=== PATIENT | male | born 1960 | race Caucasian/White ===

== ENCOUNTER 2020-08-15 06:33 | Emergency (ER) | payer OTHER ==
--- NOTE | 2020-08-15 06:40 | ER Document Report ---
ED General <JENNIFER PATINO - Last Filed: 08/15/20 08:05> <ELISEDANIEL M - Last Filed: 08/15/20 10:56> <FLACORIVER Za - Last Filed: 08/15/20 12:45> - General Chief Complaint: Sore Throat Stated Complaint: THROAT Time Seen by Provider: 08/15/20 06:39 Primary Care Provider: GURWINDER RODRIGUEZ [NO LOCAL MD] - Follow up as needed - HPI Notes: 59-year-old male to the emergency department with complaints of progressively worsening left-sided throat swelling and pain and left-sided neck swelling for the past 3 weeks. He states his been going to the [facility] for this. He states he has been on antibiotics. He states he cannot remember the name of the last antibiotic. Denies any fevers or chills. He states that is been getting worse in the past couple of days. States when he lays flat he feels like he cannot really breathe. He denies any chest pain or shortness of breath. (JENNIFER PATINO) Past Medical History - General Information source: Patient - Social History Smoking Status: Current Every Day Smoker Frequency of alcohol use: None Drug Abuse: None Family History: Reviewed & Not Pertinent <JENNIFER PATINO - Last Filed: 08/15/20 08:05> Review of Systems - Review of Systems Constitutional: denies: Chills, Fever EENT: Throat pain, Difficulty swallowing, Throat swelling - See HPI Cardiovascular: denies: Chest pain, Palpitations, Heart racing, Orthopnea, Dyspnea, Syncope, Dizziness, Lightheaded Respiratory: denies: Cough, Short of breath Gastrointestinal: denies: Abdominal pain, Diarrhea, Nausea, Vomiting Musculoskeletal: No symptoms reported Skin: No symptoms reported Hematologic/Lymphatic: No symptoms reported Neurological/Psychological: No symptoms reported -: Yes All other systems reviewed and negative <JENNIFER PATINO - Last Filed: 08/15/20 08:05> Physical Exam - Vital signs Interpretation: Normal - General General appearance: Appears well, Alert - HEENT Head: Normocephalic, Atraumatic Ears: Normal External canal: Normal. No: Blood in canal, Cerumen impaction Tympanic membrane: Normal. No: Bulging Sinus: Normal Nasal: Normal. No: Purulent discharge Pharynx: Other - There is significant edema to the left tonsillar pillar. There is shifting of the uvula because of this and crowding in the posterior oropharynx. Patient does not have a muffled voice and he is not actively drooling. He has no Trismus. There is no Alejandro's angina. There is unilateral neck swelling. Likely most consistent with a lymph node; however the area is very hard and not mobile. Neck: Supple - Respiratory Respiratory status: No respiratory distress Chest status: Nontender. No: Accessory muscle use Breath sounds: Normal. No: Rales, Rhonchi, Wheezing Chest palpation: Normal - Cardiovascular Rhythm: Regular Heart sounds: Normal auscultation Murmur: No - Abdominal Inspection: Normal Distension: No distension Bowel sounds: Normal Tenderness: Nontender. No: Tender, McBurney's point, Jacome's sign, Guarding, Rebound Organomegaly: No organomegaly - Back Back: Normal, Nontender - Neurological Neuro grossly intact: Yes Cognition: Normal Orientation: AAOx4 Paras Coma Scale Eye Opening: Spontaneous Paras Coma Scale Verbal: Oriented Revere Coma Scale Motor: Obeys Commands Revere Coma Scale Total: 15 Speech: Normal Cranial nerves: Normal Cerebellar coordination: Normal Motor strength normal: LUE, RUE, LLE, RLE Additional motor exam normals: Equal product evangelist Sensory: Normal - Psychological Associated symptoms: Normal affect, Normal mood - Skin Skin Temperature: Warm Skin Moisture: Dry Skin Color: Normal <JENNIFER PATINO M - Last Filed: 08/15/20 08:05> - Vital signs Vitals: Temp Pulse Resp BP Pulse Ox 97.8 F 72 17 140/90 H 97 08/15/20 06:38 08/15/20 06:38 08/15/20 06:38 08/15/20 06:38 08/15/20 06:38 Course - Laboratory Result Diagrams: 08/15/20 07:03 08/15/20 07:03 <JENNIFER PATINO M - Last Filed: 08/15/20 08:05> - Laboratory Result Diagrams: 08/15/20 07:03 08/15/20 07:03 <DANIEL OLIVARES M - Last Filed: 08/15/20 10:56> - Laboratory Result Diagrams: 08/15/20 07:03 08/15/20 07:03 <RIVER SAM J - Last Filed: 08/15/20 12:45> - Re-evaluation Re-evalutation: 08/15/20 06:[address] Sam, my ER attending. He is aware that I have ordered a CT of the neck as well as gotten labs, Decadron and clindamycin ordered. Dr. Sma will go and examined the patient's throat. 08/15/20 07:15 Dr. Sam went and saw the patient. We will call ENT to discuss the patient. He agrees with Decadron and Clinda. Spoke with Dr. Tobar, ENT. He is aware of the encouragement of the airway on the patient; however, patient is stable. He does not have trismus, drooling, tripoding. Dr. Tobar agrees with the current plan for Decadron, Clinda. He wi ll await return phone call after CT. have placed airway cart by patient to room. Advised Dr. Tobar, I would call him should the patient's status change further. 08/15/20 08:05 Turned patient over to PROFESSOR OF POULTRY SCIENCE Daniel Olivares. She will await Ct and called Dr. Tobar. We did bedside rounding on the patient. She will dispo the patient accordingly. (JENNIFER PATINO) 08/15/20 08:[address] Tobar, the ENT administration specialist he said that due to the patient having airway compromise and this most likely being cancer, he is recommending patient be transferred to another facility. 08/15/20 08:55 I called [facility]. Will await callback from ENT. 08/15/20 09:[address] Mccall, ENT at [facility]. Patient will be a ED to ED transfer. 08/15/20 09:38 Dr. Mccall called back. He would like me to have Dr. Tobar. I spoke with Dr. Tobar and he would like the patient transferred to [facility] 08/15/20 09:45 I spoke with the transfer center at [facility]. Will await callback from ENT. 08/15/20 10:26 Dr. Sam and I spoke with Dr. Isidro from [facility]. She states that with these types of tumors, the patients follow-up on an outpatient basis. She would like patient to follow-up in the clinic on Sunday. [place] will give him a call with follow-up. Discussed this with the patient. He is in agreement with this plan. Follow-up precautions were given. Verbal discharge instructions were given to the patient. They verbalized understanding. They are stable for discharge. (DANIEL OLIVARES) 08/15/20 12:[address] Sam. On patient's arrival patient was evaluated by midlevel provider and myself. It was noted that patient had a large mass in the left retropharyngeal area pushing deviating tissue to the right past midline uvula. Patient's airway was patent beyond that point. Patient had no stridor no tachypnea no respiratory distress speech was clear and patient was not having any drooling was able to swallow without difficulty. Patient also had was able to speak without unintelligible speech. 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 Patient was deemed not an emergency necessary transfer to another facility when we discussed this case with the ENT at [facility]. The plan at that time became 1 treat patient with continued steroids and Ector Magic mouthwash and Tylenol ibuprofen. Patient also is to be followed up by the ENT clinic. [facility] ENT clinic will be in touch with subject patient to alert him to know details of date and time of his clinic visit. Patient understood this and patient is discharged home in good health at this time. No airway compromise of any significance. There is no worsening of airway while in the department and if anything the mass size did decrease as patient thought "" that it loosened up". (RIVER SAM) - Vital Signs Vital signs: Temp Pulse Resp BP Pulse Ox 97.8 F 72 15 111/81 96 08/15/20 06:38 08/15/20 11:15 08/15/20 11:15 08/15/20 11:15 08/15/20 11:15 Discharge <JENNIFER PATINO - Last Filed: 08/15/20 08:05> <ELISEDANIEL M - Last Filed: 08/15/20 10:56> <RIVER SAM - Last Filed: 08/15/20 12:45> - Discharge Clinical Impression: Throat mass Condition: Stable Disposition: HOME, SELF-CARE Additional Instructions: You are seen today in the emergency department for sore throat. You have a mass in your throat. Please follow-up with [facility] with Dr. Isidro. They will call you with an appointment on Sunday. Please take the steroids as prescribed. If you develop shortness of breath or difficulty breathing, call 911 or return to the emergency department immediately. Prescriptions: Ibuprofen [Ibu] 600 mg PO Q6HP PRN #30 tablet PRN Reason: Nystatin/Dexameth/Diphen [Magic Mouthwash ([facility] Formula) Susp] 5 ml PO QID #120 ml Methylprednisolone [Medrol Dosepack (4 mg/Tab) 21 Tab/Dosepak] 4 mg PO ASDIR PRN #21 tab.ds.pk PRN Reason: Forms: Return to Work Referrals: LOCALMD,NO [NO LOCAL MD] - Follow up as needed
[2020-08-15] MEDS ORDERED: CLINDAMYCIN 900 MG/D5W RTU 900 MG/50 ML RTUPB IV ONE (06:51)
[2020-08-15] MEDS ORDERED: DEXAMETHASONE SOD PHOS INJ 10 MG/1 ML VIAL IV ONE (06:51)
[2020-08-15] MEDS ORDERED: NORMAL SALINE 1000 ML 1,000 ML IV ONE (06:52)
[2020-08-15] MEDS ORDERED: DEXAMETHASONE SOD PHOSPHATE INJ 4 MG/1 ML VIAL ONE (06:57)
[2020-08-15 07:14] LABS: ABSOLUTE EOSINOPHILS # (AUTO) 0.1 10^3/uL (0.0-0.6); ABSOLUTE LYMPHOCYTES (AUTO) 1.2 10^3/uL (0.5-4.7); ABSOLUTE MONOCYTES (AUTO) 0.7 10^3/uL (0.1-1.4); ABSOLUTE NEUT (AUTO) 5.9 10^3/uL (1.7-8.2); BASOPHILS % (AUTO) 0.4 % (0-2); EOSINOPHILS % (AUTO) 1.6 % (0-6); HEMATOCRIT 45.1 % (37.9-51.0); HEMOGLOBIN 15.9 g/dL (13.5-17.0); LYMPHOCYTES % (AUTO) 14.8 % (13-45); MEAN CORPUSCULAR HEMOGLOBIN 33.1 pg (27.0-33.4); MEAN CORPUSCULAR HGB CONC 35.3 g/dL (32.0-36.0); MEAN CORPUSCULAR VOLUME 94 fl (80-97); MONOCYTES % (AUTO) 8.8 % (3-13); PLATELET COUNT 260 10^3/uL (150-450); RED CELL DISTRIBUTION WIDTH 12.8 % (11.5-14.0); SEGMENTED NEUTROPHILS % (AUTO) 74.4 % (42-78); TOTAL CELLS COUNTED % (AUTO) 100 %; WHITE BLOOD COUNT 7.9 10^3/uL (4.0-10.5)
[2020-08-15 07:35] LABS: ALBUMIN 4.5 g/dL (3.5-5.0); ALKALINE PHOSPHATASE 84 U/L (38-126); ANION GAP 10 (5-19); ASPARTATE AMINO TRANSFERASE 29 U/L (17-59); BLOOD UREA NITROGEN 12 mg/dL (7-20); CALCIUM 9.4 mg/dL (8.4-10.2); CARBON DIOXIDE 29 mmol/L (22-30); CHLORIDE 102 mmol/L (98-107); GLUCOSE 108 mg/dL (75-110); POTASSIUM 4.2 mmol/L (3.6-5.0); TOTAL PROTEIN 7.3 g/dL (6.3-8.2)
--- NOTE | 2020-08-15 08:36 | RADIOLOGY REPORT (SQ) ---
EXAM DESCRIPTION: CT SOFT TISSUE NECK WITH IMAGES COMPLETED DATE/TIME: 08/15/2020 8:05 am REASON FOR STUDY: unilateral throat swelling, eval CASINO GAMING INSPECTOR vs RPA COMPARISON: None. TECHNIQUE: Post IV contrasted scanning from skull base through lung apices with review of bone, soft tissue and lung windows. Reconstructed coronal and sagittal MPR images reviewed. All images stored on PACS. All CT scanners at this facility use dose modulation, iterative reconstruction, and/or weight based d osing when appropriate to reduce radiation dose to as low as reasonably achievable (ALARA). [facility]: Dose Right [facility]: CareDose [facility]: Dose Right [facility]: Teradose 4D [facility]: Pressflip CONTRAST TYPE AND DOSE: contrast/concentration: Isovue 350.00 mmol/ml; Total Contrast Delivered: 75. 0 ml; Total Saline Delivered: 55.0 ml RENAL FUNCTION: GFR > 60. RADIATION DOSE: CT Rad equipment meets quality standard of care and radiation dose reduction techniq ues were employed. CTDIvol: 15.2 mGy. DLP: 487 mGy-cm. . LIMITATIONS: None. FINDINGS: SKULL BASE: Intact. MAJOR SALIVARY GLANDS: No solid or cystic masses. No inflammatory changes. LYMPHADENOPATHY: Extensive adenopathy along the left cervical chain. MUCOSAL MASSES OR ASYMMETRY: There is extremely large mass at the center in the pharyngeal mucosal sp jae. This mass extends through the carotid space with compression of the tubular vein. Extension al so into the prevertebral space and parapharyngeal space. There does appear to be potential airway co mpromise. Largest diameter 7 cm. LARYNX/CORDS: No abnormal findings. VASCULAR STRUCTURES: Compression of the IJ on the left. Carotid space is generally deviated posterio rly. LUNG APICES: Clear. BONES: Intact. THYROID: Normal size. No masses. PARANASAL SINUSES: Clear. OTHER: No other significant finding. IMPRESSION: Extremely large mass in the parapharyngeal mucosal space on the left with encasement of the IJ and posterior deviation of the carotid. Highly suspicious for tumor. Possible airway compromise. COMMENT: Pertinent findings on the imaging study reported as a CRITICAL RESULT to JENNIFER PATINO PA-C at08:29 on 08/15/2020. Category of Critical Result: Possible airway compromise TECHNICAL DOCUMENTATION: JOB ID: [id number] Quality ID # [id number]: Final reports with documentation of one or more dose reduction techniques (e.g., Au tomated exposure control, adjustment of the mA and/or kV according to patient size, use of iterative reconstruction technique) 2010 [employer]- All Rights Reserved Reading location - IP/workstation name: [email or web address]
[2020-08-15 11:17] VITALS: BP 111/81
== END 2020-08-15 11:15 | disposition home or self-care (01) ==
LOC: ER 06:33
DX: J39.2 Other diseases of pharynx (principal); R07.0 Pain in throat; R13.10 Dysphagia, unspecified; F17.200 Nicotine dependence, unspecified, uncomplicated
CPT/HCPCS: 99285; 96361; 96365; 96368; 36415; 87040; 87070; 87880; 85025; 86308; 80053; 70491; J3490; J7030; J1100

== ENCOUNTER 2020-08-17 15:53 | Emergency (ER) | payer OTHER ==
--- NOTE | 2020-08-17 16:12 | ER Document Report ---
ED Medical Screen (RME) - General Stated Complaint: NECK PAIN Time Seen by Provider: 08/17/20 16:11 Mode of Arrival: Ambulatory Information source: Patient Notes: 5-year-old male patient presenting to the emergency department with concern for mass to the right side of his neck. Patient reports he was seen here several days ago, diagnosed with a large neck mass with compressive symptoms. Patient was placed to be transferred to [facility]. Apparently after much deliberation the patient was then supposed to follow-up outpatient with [facility] ENT clinic. He states due to red tape with the [place] patient was not able to accomplish this. He states he has spoken with a physician at [facility], they want to have him there however they did not want him to drive so he was told to present to our emergency department to be transferred to [facility]. Patient is speaking in full and complete sentences. He does report that he has some feelings of fullness with swallowing. I have greeted and performed a rapid initial assessment of this patient. A comprehensive ED assessment and evaluation of the patient, analysis of test results and completion of the medical decision making process will be conducted by additional ED providers. I have specifically instructed the patient or family members with the patient to immediately return to any nursing staff should anything change in the patient's condition or with their chief complaint. Physical Exam - Vital signs Vitals: Temp Pulse Resp BP Pulse Ox 98.1 F 105 H 16 166/92 H 98 08/17/20 16:08 08/17/20 16:08 08/17/20 16:08 08/17/20 16:08 08/17/20 16:08 Course - Vital Signs Vital signs: Temp Pulse Resp BP Pulse Ox 98.1 F 105 H 16 166/92 H 98 08/17/20 16:08 08/17/20 16:08 08/17/20 16:08 08/17/20 16:08 08/17/20 16:08
[2020-08-17 17:16] LABS: ALBUMIN 4.6 g/dL (3.5-5.0); ALKALINE PHOSPHATASE 83 U/L (38-126); ANION GAP 11 (5-19); ASPARTATE AMINO TRANSFERASE 31 U/L (17-59); BILIRUBIN,DIRECT 0.2 mg/dL (0.0-0.4); BILIRUBIN,TOTAL 0.4 mg/dL (0.2-1.3); BLOOD UREA NITROGEN 15 mg/dL (7-20); CALCIUM 9.7 mg/dL (8.4-10.2); CARBON DIOXIDE 25 mmol/L (22-30); CHLORIDE 105 mmol/L (98-107); GLUCOSE 117 mg/dL (75-110); POTASSIUM 4.8 mmol/L (3.6-5.0); TOTAL PROTEIN 7.5 g/dL (6.3-8.2)
--- OUTSIDE RECORDS SUMMARY | 2020-08-17 18:29 | XMS REPORT ---
:1960 Author Organization [facility] Address [facility] [address] [place] [address] Care Team Providers Name Role Phone Unavailable Unavailable Unavailable Allergies, Adverse Reactions, Alerts This patient has no known allergies or adverse reactions. Medications This patient has no known medications. Problems Condition Condition Condition Status Onset Resolution Last Treatin g Comments Name Details Category Date Date Treatment Clinician Date Not on file Not on file [id number] Procedures This patient has no known procedures. Results This patient has no known results. Encounters Start End Encounter Admission Attending Care Care Encounter ID Date/Time Date/Time Type Type Clinicians Facility Department 2020-08-15 2020-08-15 Outpatient [facility] [id number] 00:00:00 00:00:00 Plan of Treatment Planned Activity Planned Date Details Comments Future Scheduled Test [code = ] Future Scheduled Test [code = ] Future Scheduled Test [code = ] Future Scheduled Test [code = ] Future Scheduled Test [code = ] Social History This patient has no known social history. Vital Signs This patient has no known vital signs.
[2020-08-17 21:31] LABS: ABSOLUTE LYMPHOCYTES (AUTO) 1.2 10^3/uL (0.5-4.7); ABSOLUTE MONOCYTES (AUTO) 0.8 10^3/uL (0.1-1.4); ABSOLUTE NEUT (AUTO) 7.5 10^3/uL (1.7-8.2); BASOPHILS % (AUTO) 0.3 % (0-2); EOSINOPHILS % (AUTO) 0.2 % (0-6); HEMATOCRIT 43.8 % (37.9-51.0); HEMOGLOBIN 15.2 g/dL (13.5-17.0); LYMPHOCYTES % (AUTO) 12.7 % (13-45); MEAN CORPUSCULAR HEMOGLOBIN 32.7 pg (27.0-33.4); MEAN CORPUSCULAR HGB CONC 34.6 g/dL (32.0-36.0); MEAN CORPUSCULAR VOLUME 95 fl (80-97); MONOCYTES % (AUTO) 8.4 % (3-13); PLATELET COUNT 297 10^3/uL (150-450); RED BLOOD COUNT 4.64 10^6/uL (4.35-5.55); RED CELL DISTRIBUTION WIDTH 12.7 % (11.5-14.0); SEGMENTED NEUTROPHILS % (AUTO) 78.4 % (42-78); TOTAL CELLS COUNTED % (AUTO) 100 %; WHITE BLOOD COUNT 9.5 10^3/uL (4.0-10.5)
--- NOTE | 2020-08-17 23:57 | ER Document Report ---
ED General - General Stated Complaint: NECK PAIN Time Seen by Provider: 08/17/20 16:11 Primary Care Provider: NEL,BAILEY [Primary Care Provider] - Follow up as needed Mode of Arrival: Ambulatory Information source: Patient Notes: LAST ED VISIT Emergency Provider: DANIEL OLIVARES Number: [id number] Date: 08/15/20 06:40 - General Chief Complaint: Sore Throat Stated Complaint: THROAT Time Seen by Provider: 08/15/20 06:39 Primary Care Provider: MICHAEL,GURWINDER [NO LOCAL MD] - Follow up as needed - HPI Notes: 59-year-old male to the emergency department with complaints of progressively worsening left-sided throat swelling and pain and left-sided neck swelling for the past 3 weeks. He states his been going to the [place] clinic for this. He states he has been on antibiotics. He states he cannot remember the name of the last antibiotic. Denies any fevers or chills. He states that is been getting worse in the past couple of days. States when he lays flat he feels like he can not really breathe. He denies any chest pain or shortness of breath. (JENNIFER PATINO) CT scan as read by Dr. Valarie Blue on 15 August 2020 reveals an impression of a large mass in the parapharyngeal mucosal space on the left with encasement of the IJ and posterior deviation of the carotid with suspicious for tumor. Also possible air way compromise. ED Medical Screen (Kailash choi) - General Stated Complaint: NECK PAIN Time Seen by Provider: 08/17/20 16:11 Mode of Arrival: Ambulatory Information source: Patient Notes: 59-year-old male patient presenting to the emergency department with concern for mass to the right side of his neck. Patient reports he was seen here several days ago, diagnosed with a large neck mass with compressive symptoms. Patient was placed to be transferred to [facility]. Apparently after much deliberation the patient was then supposed to follow-up outpatient with [facility] ENT clinic. He states due to red tape with the [place] patient was not able to accomplish this. He states he has spoken with a physician at [facility], they want to have him there however they did not want him to drive so he was told to present to our emergency department to be transferred to [facility]. Past Medical History - General Information source: Patient - Social History Family History: Reviewed & Not Pertinent Physical Exam - Vital signs Vitals: Temp Pulse Resp BP Pulse Ox 98.1 F 105 H 16 166/92 H 98 08/17/20 16:08 08/17/20 16:08 08/17/20 16:08 08/17/20 16:08 08/17/20 16:08 Course - Vital Signs Vital signs: Temp Pulse Resp BP Pulse Ox 98.1 F 67 16 183/109 H 98 08/17/20 23:54 08/17/20 23:54 08/17/20 23:54 08/17/20 23:54 08/17/20 23:54 - Laboratory Result Diagrams: 08/17/20 21:08 08/17/20 16:42 Laboratory results interpreted by me: 08/17/20 08/17/20 16:42 21:08 Lymph % (Auto) 12.7 L Seg Neutrophils % 78.4 H Glucose 117 H Discharge - Discharge [facility]errals: [facility] [Primary [facility]] - Follow up as needed
--- NOTE | 2020-08-18 00:05 | ER Document Report ---
ED ENT - General Stated Complaint: NECK PAIN Time Seen by Provider: 08/17/20 16:11 Mode of Arrival: Ambulatory Notes: Patient is a 59-year-old male who comes emergency department for chief complaint of a mass to the left side of the neck and causing discomfort and swallowing difficulty in the back of his throat. Patient was seen on Sunday this department and had imaging, he states that after discussing with ENT here, [place], patient was recommended to be transferred to [facility], reportedly at that point he was recommended to follow-up outpatient. Patient states that he is unable to get to the [facility] because he states first of all it is a difficult trip and second of all he was told the MD would not cover that. [facility] and be transferred to [facility] instead. Patient is requesting for us to do this. Patient states he has a sensation of difficulty swallowing but he is able to do so, he is not drooling, he denies change in his breathing although he states he feels like when he lies down he cannot breathe. He states that he has had worsening symptoms for about 3 weeks and did not really notice it before then. He has been on Augmentin and clindamycin for this. He states the only thing that really seems to help his Magic mouthwash. He currently smokes cigarettes. - Related Data Allergies/Adverse Reactions: No Known Allergies Allergy (Verified 08/18/20 00:31) Past Medical History - General Information source: Patient - Social History Smoking Status: Current Every Day Smoker Frequency of alcohol use: None Drug Abuse: None Lives with: Family Family History: Reviewed & Not Pertinent - Immunizations Hx Diphtheria, Pertussis, Tetanus Vaccination: Yes Review of Systems - Review of Systems Constitutional: No symptoms reported EENT: See HPI Cardiovascular: No symptoms reported Respiratory: No symptoms reported Gastrointestinal: No symptoms reported Genitourinary: No symptoms reported Male Genitourinary: No symptoms reported Musculoskeletal: No symptoms reported Skin: No symptoms reported Hematologic/Lymphatic: No symptoms reported Neurological/Psychological: No symptoms reported Physical Exam - Vital signs Vitals: Temp Pulse Resp BP Pulse Ox 98.1 F 105 H 16 166/92 H 98 08/17/20 16:08 08/17/20 16:08 08/17/20 16:08 08/17/20 16:08 08/17/20 16:08 - Notes Notes: GENERAL: Alert, interacts well. No acute distress. HEAD: Normocephalic, atraumatic. EYES: Pupils equal, round, and reactive to light. Extraocular movements intact. ENT: Oral mucosa moist, tongue midline. There is a firm nontender palpable area over the left upper neck just below the jaw. Pharyngeal evaluation shows large swollen area adjacent and including the left tonsillar area and causing midline shift with displacement of the uvula. There are small patches of whitish appearance over the area as well. No purulent appearance however. No draining abscess or bleeding. Patient is not speaking in a muffled voice, does not have trismus, is tolerating his secretions. NECK: Full range of motion. Supple. Trachea midline. No lymphadenopathy. LUNGS: Clear to auscultation bilaterally, no wheezes, rales, or rhonchi. No r espiratory distress. Non-tender chest wall. HEART: Regular rate and rhythm. No murmur ABDOMEN: Soft, non-tender. Non-distended. EXTREMITIES: Moves all 4 extremities spontaneously. No edema, normal radial and dorsalis pedis pulses bilaterally. No cyanosis. BACK: no cervical, thoracic, lumbar midline tenderness. No saddle anesthesia, normal distal neurovascular exam. Moves all extremities in full range of motion. NEUROLOGICAL: Alert and oriented x3. Normal speech. Cranial nerves II through XII grossly intact. Strength 5/5 in all extremities. PSYCH: Normal affect, normal mood. SKIN: Warm, dry, normal turgor. No rashes or lesions noted. Course - Re-evaluation Re-evalutation: Patient is talkative on exam, alert, well-appearing. He is not drooling. He does have a hard swollen area in the left upper neck just below the jaw and he has a large abnormal swelling in the left pharyngeal area displacing the uvula towards the right. He is still able to drink and he is able to eat soft foods, he states that he last ate soup at around noon. He is not in any distress. I called and spoke with Dr. Tobar ENT salon designer. He states that patient needs tertiary care with head and neck oncological specialty, he states that he pers onally will not be able to care for the patient and he states that [facility] will also not be able to serve the patient's purposes. He recommends [facility], or [place]. I discussed with patient, will discuss with [facility] because they are closest. 08/18/20 00:20 Call placed to [facility]. 08/18/20 00:34 Spoke with transfer center, pending callback from ENT, we shared the images. 08/18/[address] Ott, ENT. He states that patient could be back taken care of by Dr. Almas Haque who is head and neck oncology specialty with their group. Patient is to call them tomorrow morning to set up close follow-up for additional management, he will take his CAT scan CD with him and he has this with now. I discussed these details at length patient patient states satisfaction agreement with plan, he has not had any change since she was seen previously and discharged to follow-up with [facility] which did not work out. Discussed return cautions at length. Patient states appreciation and agreement. Stable and well-appearing at time of discharge. - Vital Signs Vital signs: Temp Pulse Resp BP Pulse Ox 98 F 77 16 151/92 H 96 08/18/20 01:26 08/18/20 01:26 08/18/20 01:26 08/18/20 01:26 08/18/20 01:26 - Laboratory Result Diagrams: 08/17/20 21:08 08/17/20 16:42 Laboratory results interpreted by me: 08/17/20 08/17/20 16:42 21:08 Lymph % (Auto) 12.7 L Seg Neutrophils % 78.4 H Glucose 117 H Discharge - Discharge Clinical Impression: Pharyngeal mass Condition: Stable Disposition: HOME, SELF-CARE Additional Instructions: You did not require emergent transfer for emergent surgery tonight, however I spoke with yoan [facility] for followup. Please call Dr. Almas Haque tomorrow morning at [phone] to confirm your close followup for management. Come back if you are worse (difficulty swallowing or breathing or any other concerning or worsening symptoms). Prescriptions: Nystatin/Dexameth/Diphen [Magic Mouthwash ([facility] Formula) Susp] 5 ml PO QID #120 ml
[2020-08-18 01:29] VITALS: BP 151/92
== END 2020-08-18 01:26 | disposition home or self-care (01) ==
LOC: ER 15:53
DX: J39.2 Other diseases of pharynx (principal); R22.1 Localized swelling, mass and lump, neck; R13.10 Dysphagia, unspecified; F17.210 Nicotine dependence, cigarettes, uncomplicated
CPT/HCPCS: 36415; 80053; 85025; 99283